=== PATIENT | female | born 1990 | race Two or more races ===

== ENCOUNTER 2021-09-07 14:06 | Emergency (ER) | payer OTHER ==
[~2021-09-07] VITALS: Ht 165.1 cm; Wt 112.5 kg
[~2021-09-07 14:06] MED LIST: LO/OVRAL-281 TAB
[2021-09-07] MEDS ORDERED: SYNTHROID50 MCG PO (14:23)
== END 2021-09-07 22:08 | disposition home or self-care (01) ==
LOC: ER 14:06
DX: K62.5 Hemorrhage of anus and rectum (principal)

== ENCOUNTER 2023-10-17 10:45 | Outpatient (CLI) | payer OTHER ==
[~2023-10-17 10:45] MED LIST changes: +SYNTHROID50 MCG PO
[2023-10-17 11:59] LABS: HEMATOCRIT 34.5 % (36.0-45.00); HEMOGLOBIN 11.1 g/dL (12.0-15.00); MEAN CELL VOLUME 77.8 fL (80.00-100.00); MEAN CORPUSCULAR HEMOGLOBIN 25.1 pg (27.00-32.0); MEAN CORPUSCULAR HGB CONC 32.2 g/dl (32.0-36.0); PLATELET COUNT 472 K/uL (150-450); RED BLOOD COUNT 4.43 M/uL (4.00-6.00)
[2023-10-17 12:04] LABS: PH,URINE 5.5 (5.0-8.0); URINE APPEARANCE Clear; URINE BILIRRUBIN Negative (NEGATIVE); URINE BLOOD Large; URINE COLOR Yellow; URINE GLUCOSE Negative (NEGATIVE); URINE KETONE Negative (NEGATIVE); URINE LEUKOCYTE Negative; URINE NITRATE Negative; URINE PROTEIN Negative (NEGATIVE); URINE UROBILINOGEN 0.2 E.U./dl
[2023-10-17 12:11] LABS: URINE BACTERIA 71.8 uL (0.0-1933); URINE EPITHELIAL CELLS 15.9 uL (0.0-38.8); URINE RBC 367.9 uL (0.0-20.8); URINE WBC 12.9 uL (0.0-23.2)
[2023-10-17 12:13] LABS: URINE CAST 0.15 uL (0.0-1.40)
[2023-10-17 12:54] LABS: PARTIAL THROMBOPLASTIN TIME 31.1 SECONDS (22.0-34.0); PROTHROMBIN TIME 10.9 SECONDS (9.0-11.5)
[2023-10-17 13:03] LABS: BILIRUBIN TOTAL 0.48 mg/dL (0.3-1.2); CALCIUM 9.2 mg/dL (8.5-10.1); CREATININE SERUM 0.87 mg/dL (0.55-1.02); GFR 74.98; GLOBULINA 3.5 G/DL (2.4-3.5); POTASSIUM 4.33 mEq/L (3.5-5.1); TOTAL PROTEIN 7.5 gm/dL (6.4-8.2)
== END 2023-10-17 11:07 | disposition home or self-care (01) ==
LOC: LAB 10:45
PROVIDERS: ATTEND Obstetrics & Gynecology
DX: R07.1 Chest pain on breathing (principal); N39.0 Urinary tract infection, site not specified; D50.9 Iron deficiency anemia, unspecified; E08.00 Diabetes mellitus due to underlying condition with hyperosmolarity without nonketotic hyperglycemic-hyperosmolar coma (NKHHC); N93.9 Abnormal uterine and vaginal bleeding, unspecified

== ENCOUNTER 2023-10-30 06:48 | Day surgery (SDC) | payer OTHER ==
[~2023-10-30 06:48] MED LIST changes: +PROVERA2.5 MG; +TRANEXAMIC ACI MC
[2023-10-30] MEDS ORDERED: DESMOPRESSIN ACETATE 4 MCG/ML AMPUL IV ONE ×3 (11:15→15:00)
[2023-10-30] MEDS ORDERED: AMINOCAPROIC ACID 250 MG/ML VIAL IV ONE (11:15)
[2023-10-30] MEDS ORDERED: POVIDONE-IODINE 118 ML BOTT TOP ONE ×2 (11:25→11:30)
[2023-10-30] MEDS ORDERED: MORPHINE SULFATE 4 MG/ML VIAL IV PRN (16:00)
== END 2023-10-30 17:25 | disposition home or self-care (01) ==
LOC: CIR.AMB 06:48
PROVIDERS: ATTEND Obstetrics & Gynecology
DX: N84.0 Polyp of corpus uteri (principal); D25.0 Submucous leiomyoma of uterus; N93.8 Other specified abnormal uterine and vaginal bleeding; N95.0 Postmenopausal bleeding; D68.00 Von Willebrand disease, unspecified; D64.9 Anemia, unspecified; E03.9 Hypothyroidism, unspecified; J45.909 Unspecified asthma, uncomplicated

== ENCOUNTER 2023-12-23 11:07 | Emergency (ER) | payer OTHER ==
[~2023-12-23] VITALS: Ht 165.1 cm; Wt 108.4 kg
[2023-12-23] MEDS ORDERED: DROSPIRENONE-E1 EAC1 PO (11:31)
[2023-12-23] MEDS ORDERED: AMICAR500 MG PO (11:31)
[2023-12-23] MEDS ORDERED: ACETAMINOPHEN WITH CODEINE 1 UDTAB TABLET PO ONE (14:45)
== END 2023-12-23 17:11 | disposition home or self-care (01) ==
LOC: ER 11:08
DX: T83.39XA Other mechanical complication of intrauterine contraceptive device, initial encounter (principal); N93.8 Other specified abnormal uterine and vaginal bleeding